=== PATIENT | female | born 1950 | race Caucasian/White ===

== ENCOUNTER → 2016-12-15 | Day surgery (SDC) | payer MEDICARE, OTHER ==
[~2016-12-15] VITALS: Ht 165.1 cm; Wt 99.8 kg
[~2016-12-15] MED LIST: BIOT10005 PO; CALC600T57 PO; GARL1CAP PO; GLUC1CAP10 PO; HYDROmorphone HCL 1 MG/ML SYRINGE (J1170) IV PRN; K-TA10TA2 PO; KETOROLAC 30 MG/ML VIAL (J1885) IV SCH; KETOROLAC 60 MG/2 ML VIAL (J1885) As Ordered ONE; LIDOCAINE 2% INJ 100 MG/5 ML SDV (FOR ANES.) As Ordered ONE; LR 1,000 ML IV SCH; MIDAZOLAM INJ 2 MG/2 ML VIAL (J2250) As Ordered ONE; MULT1TAB15 PO; NEUR300C PO; NEXI20CA PO; ONDANSETRON 4MG/2ML VIAL (J2405) As Ordered ONE; ONDANSETRON 4MG/2ML VIAL (J2405) IV PRN; PERCOCET 5MG/325MG TAB PO PRN; PROPOFOL 200 MG/20 ML VIAL As Ordered ONE; TRIA37.53 PO; VITA10002 PO; VITA100T86 PO; VITA200016 PO; VITA500C24 PO; fentaNYL 100 MCG/2 ML INJECTION (J3010) As Ordered ONE; fentaNYL 100 MCG/2 ML INJECTION (J3010) IV PRN
[2016-12-15 11:07] LABS: MEAN CORPUSCULAR HEMOGLOBIN 29.3 pg (27.0-33.0); MEAN CORPUSCULAR HGB CONC 33.3 g/dl (32.0-36.5); MEAN CORPUSCULAR VOLUME 88.2 fl (80.0-96.0); RED CELL DISTRIBUTION WIDTH 13.1 % (11.5-14.5); WHITE BLOOD COUNT 6.7 K/mm3 (4.0-10.0)
--- NOTE | 2016-12-15 16:49 | RO ---
DATE OF PROCEDURE: 12/15/2016 PREOPERATIVE DIAGNOSIS: Postmenopausal bleeding. POSTOPERATIVE DIAGNOSIS: Postmenopausal bleeding. PROCEDURE PERFORMED: Hysteroscopy, dilation and curettage with MyoSure. SURGEON: Sarah Monet MD [employer] E[employer]IPMENT INSTALLER: None. ANESTHESIA: General endotracheal anesthesia. ESTIMATED BLOOD LOSS: 5 mL. INTRAVENOUS FLUIDS: 1100 mL of Lactated Ringer's solution. SPECIMENS: 1. Endometrial polyp. 2. Endometrial curettings OPERATIVE FINDINGS: Patient sounded to 7.5 cm. Hysteroscopic findings revealed a thickened endometrium with the posterior endometrial polyp. The ostia's were not visualized bilaterally. DESCRIPTION OF PROCEDURE: After informed consent was obtained and written consent was reviewed, the patient was brought to the operating room where general endotracheal anesthesia was obtained. She was then placed in lithotomy position, was prepped and draped in a normal sterile fashion. A time out in the operating room was then performed identifying the patient, procedure to be performed as well as drug allergies. A bivalve speculum was placed revealing the cervix. The anterior lip of the cervix was grasped with single tooth tenaculum. The cervix was then sounded to 7.5 cm. Cervix was then sequentially dilated using Hanks dilators. The hysteroscope was then advanced through the cervical os and the endometrial cavity was then surveyed with the above noted findings. Next, the MyoSure device was then advanced through the hysteroscope and the endometrial polyp was then morcellated with good hemostasis noted. The scope was then removed and then a sharp curette was then advanced through the cervical os to the level of the fundus and the uterus was curetted in a 360 degree fashion with minimal amount of tissue obtained. Specimen was then sent to pathology for further evaluation. Instruments were then removed from patient's vagina. The tenaculum sites were noted to be hemostatic. Speculum was removed. The patient was then taken out of lithotomy position, was awakened from general anesthesia and taken to recover in stable condition. Counts were correct.
[2016-12-15 17:03] VITALS: BP 147/71
== END | disposition home or self-care (01) ==
LOC: M SDC 10:38
PROVIDERS: ATTEND Obstetrics & Gynecology
DX: C54.1 Malignant neoplasm of endometrium (principal); N84.0 Polyp of corpus uteri; I10 Essential (primary) hypertension; K21.9 Gastro-esophageal reflux disease without esophagitis; Z79.899 Other long term (current) drug therapy
CPT/HCPCS: 36415; 58558; 85027; 86850; 86900; 86901; 88305; J1885; J2250; J2405; J3010

== ENCOUNTER → 2016-12-24 | Outpatient (REF) | payer MEDICARE, OTHER ==
[~2016-12-24] MED LIST changes: -HYDROmorphone HCL 1 MG/ML SYRINGE (J1170) IV PRN; -KETOROLAC 30 MG/ML VIAL (J1885) IV SCH; -KETOROLAC 60 MG/2 ML VIAL (J1885) As Ordered ONE; -LIDOCAINE 2% INJ 100 MG/5 ML SDV (FOR ANES.) As Ordered ONE; -LR 1,000 ML IV SCH; -MIDAZOLAM INJ 2 MG/2 ML VIAL (J2250) As Ordered ONE; -ONDANSETRON 4MG/2ML VIAL (J2405) As Ordered ONE; -ONDANSETRON 4MG/2ML VIAL (J2405) IV PRN; -PERCOCET 5MG/325MG TAB PO PRN; -PROPOFOL 200 MG/20 ML VIAL As Ordered ONE; -fentaNYL 100 MCG/2 ML INJECTION (J3010) As Ordered ONE; -fentaNYL 100 MCG/2 ML INJECTION (J3010) IV PRN
== END ==
LOC: M LAB REF 16:59
PROVIDERS: ATTEND Advanced Practice Midwife
DX: R30.0 Dysuria (principal)

== ENCOUNTER → 2019-07-23 | Outpatient (REF) | payer MEDICARE, OTHER ==
[~2019-07-23] MED LIST changes: -BIOT10005 PO; +BIOT10008 PO; +CYAN100049 PO; +GARL10004 PO; -GARL1CAP PO; -VITA10002 PO
[2019-07-23 16:06] LABS: MAGNESIUM LEVEL 1.8 MG/DL (1.8-2.4)
[2019-07-23 16:19] LABS: TOTAL 25(OH) VITAMIN D 49.4 NG/ML (30.0-100.0)
== END ==
LOC: M LABDRAW1 15:39
PROVIDERS: ATTEND Internal Medicine Gastroenterology
DX: K44.9 Diaphragmatic hernia without obstruction or gangrene (principal); R10.13 Epigastric pain; Z12.11 Encounter for screening for malignant neoplasm of colon; E55.9 Vitamin D deficiency, unspecified; Z13.820 Encounter for screening for osteoporosis

== ENCOUNTER → 2021-06-08 | Outpatient (CLI) | payer MEDICARE, OTHER ==
[~2021-06-08] MED LIST changes: +OMEGA-3 1000MG CAPSULE ONE
--- NOTE | 2021-06-08 16:26 | REP ---
INDICATION: SWELLING, MASS, LUMP LT ARM. Lump on the upper left arm fat I am Randy years. Evaluate mass. COMPARISON: No comparison imaging. TECHNIQUE: MR markers are affixed to the skin out lining the area of interest. Axial, coronal, and sagittal imaging planes utilized. T1 and T2 weighted scans are obtained.. FINDINGS: Cortical and medullary bone signal intensity are normal in the visualized proximal humerus and scapula. There is localized enlargement of the subcutaneous fat in the region of interest at the lateral aspect of the deltoid consistent with un encapsulated lipomatous tissue. This is homogeneously fat density. No abnormal skeletal muscle signal is seen on T1 or T2 weighted scans. No other evidence of mass. No abnormal fluid collection. IMPRESSION: Non encapsulated lipoma versus regional hypertrophy of the subcutaneous fat layer in the area of interest. No soft tissue component or fluid collection is seen. Otherwise negative. <Electronically signed by Jhonathan Perry > 06/08/21 [id number]
== END ==
LOC: M PLAIMG 14:35
PROVIDERS: ATTEND Orthopaedic Surgery
DX: R22.32 Localized swelling, mass and lump, left upper limb (principal)

== ENCOUNTER → 2025-06-03 | Outpatient (CLI) | payer MEDICARE, OTHER ==
[~2025-06-03] MED LIST changes: -K-TA10TA2 PO; -OMEGA-3 1000MG CAPSULE ONE; +POTA-165 PO; -TRIA37.53 PO; +TRIA37.577 PO
== END ==
LOC: M WHC 07:14
PROVIDERS: ATTEND Nurse Practitioner Family
DX: Z12.31 Encounter for screening mammogram for malignant neoplasm of breast (principal); R92.313 Mammographic fatty tissue density, bilateral breasts